=== PATIENT | male | born 1960 | race Caucasian/White ===

== ENCOUNTER 2025-01-29 19:58 | Observation (INO) | payer BC ==
[2025-01-29] MEDS ORDERED: MAGNESIUM 1GM/D5W - 1 GM/100 ML IVPB IVPB ONE (21:03)
[2025-01-29] MEDS: SODIUM CHLORIDE 0.9% 500 ML INFUS.BAG IV ONE (21:05)
[2025-01-29] MEDS: MAGNESIUM SULF 50% (8.12 MEQ/2 ML-1 GM VIAL) IVPB ONE (21:07)
[2025-01-29 21:14] LABS: ABSOLUTE IMMATURE GRANULOCYTES 0.12 x10^3/uL (0.0-0.031); BASOPHILS # 0.06 x10^3/uL (0.01-0.08); EOSINOPHIL % 0.5 % (0.8-7.0); EOSINOPHILS # 0.08 x10^3/uL (0.04-0.54); MCHC 33.2 g/dl (32.3-36.5); MEAN CELL VOLUME 88.9 fl (79.0-92.2); MEAN PLT VOLUME 10.4 fl (9.4-12.4); MONOCYTE # 1.18 x10^3/uL (0.30-0.82); MONOCYTE % 7.7 % (5.3-12.2); RDW 14.3 % (12.2-16.4)
[2025-01-29 22:12] LABS: ALK PHOS 91 U/L (45-117); CO2 32 mmol/L (21-32); CREATININE 1.6 mg/dl (0.6-1.3); GLUCOSE,RANDOM 106 mg/dl (74-106); SGOT/AST 42 U/L (15-37); SGPT/ALT 42 U/L (7-52); TOT PROT 8.7 g/dl (6.4-8.2)
[2025-01-30 00:33] VITALS: BMI 28.6
[2025-01-30] MEDS ORDERED: SODIUM CHLORIDE 1,000 ML IV SCH (01:30)
[2025-01-30 06:17] VITALS: RESP 18
[2025-01-30 08:08] LABS: ABSOLUTE IMMATURE GRANULOCYTES 0.06 x10^3/uL (0.0-0.031); BASOPHILS # 0.06 x10^3/uL (0.01-0.08); EOSINOPHIL % 1.2 % (0.8-7.0); EOSINOPHILS # 0.15 x10^3/uL (0.04-0.54); MCHC 33.0 g/dl (32.3-36.5); MEAN CELL VOLUME 89.2 fl (79.0-92.2); MEAN PLT VOLUME 10.4 fl (9.4-12.4); MONOCYTE # 1.08 x10^3/uL (0.30-0.82); MONOCYTE % 8.3 % (5.3-12.2); RDW 14.0 % (12.2-16.4)
[2025-01-30] MEDS: ATENOLOL 50 MG TABLET (FP) PO SCH (09:20)
[2025-01-30] MEDS: SODIUM CHLORIDE 1,000 ML IV SCH (09:22)
[2025-01-30 09:24] VITALS: BP 116/72; PULSE 81; TEMP 99.3
[2025-01-30 09:55] LABS: ALK PHOS 74 U/L (45-117); CO2 28 mmol/L (21-32); CREATININE 1.3 mg/dl (0.6-1.3); GLUCOSE,RANDOM 117 mg/dl (74-106); SGOT/AST 29 U/L (15-37); SGPT/ALT 32 U/L (7-52); TOT PROT 6.9 g/dl (6.4-8.2)
== END 2025-01-30 13:34 | disposition home or self-care (01) ==
LOC: FER 19:58 → FM/S 23:43 → UNDOADMOB 01-30 00:19 → FM/S 01-30 00:19
PROVIDERS: ADMIT Hospitalist; ATTEND Internal Medicine
PROC: 3E033GC Introduction of Other Therapeutic Substance into Peripheral Vein, Percutaneous Approach (ICD-10-PCS; principal; 2025-01-29)
PROC: 3E0337Z Introduction of Electrolytic and Water Balance Substance into Peripheral Vein, Percutaneous Approach (ICD-10-PCS; 2025-01-29)
DX: E86.0 Dehydration (principal); F41.9 Anxiety disorder, unspecified; T67.5XXA Heat exhaustion, unspecified, initial encounter; X58.XXXA Exposure to other specified factors, initial encounter; Z88.0 Allergy status to penicillin
CPT/HCPCS: 36415; 80053; 80307; 82550; 82553; 83735; 84100; 85025; 93005; 97116-GP; 97162-GP; 99285-25; G0378